=== PATIENT | female | born 1970 | race Caucasian/White ===

== ENCOUNTER → 2017-09-02 | Outpatient (CLI) | payer BC, OTHER ==
[~2017-09-02] VITALS: Ht 167.6 cm; Wt 79.4 kg
[~2017-09-02] MED LIST: CELEBREX200 MG PO; DICYCLOMINE HCL10 MG PO; FLEXERIL10 MG PO; Flexeril PO; Flintstones PO; HYDROCHLOROTHIA25 MG PO; KLONOPIN0.5 M1 PO; KlonoPIN PO; LEVOTHYROXINE88 MCG PO; Levothroid,Synthroid PO; MULTIPLE VITAM1 EAC4 PO; Metamucil Packet PO; OMEPRAZOLE40 M1 PO; PANTOPRAZOLE SO40 MG PO; PERCOCET 5/31 TABLET PO; PROTONIX40 MG PO; Percocet 10/325,Endo PO; Proventil,Ventolin H IH; SUCRALFATE1 GM PO; SYNTHROID88 MCG PO; VENTOLIN HFA18 GM IH; Vicodin,Norco 5/325 PO; ZESTORETIC,P1 TABLE3 PO; Zofran SL
== END | disposition home or self-care (01) ==
LOC: AMB 10:09
PROC: 0DJ08ZZ Inspection of Upper Intestinal Tract, Via Natural or Artificial Opening Endoscopic (ICD-10-PCS; principal; 2017-09-02)
DX: K31.89 Other diseases of stomach and duodenum (principal); Z98.84 Bariatric surgery status; K21.9 Gastro-esophageal reflux disease without esophagitis; M06.9 Rheumatoid arthritis, unspecified; F41.9 Anxiety disorder, unspecified; F32.9 Major depressive disorder, single episode, unspecified; E03.9 Hypothyroidism, unspecified; R53.82 Chronic fatigue, unspecified; Z86.19 Personal history of other infectious and parasitic diseases; Z88.8 Allergy status to other drugs, medicaments and biological substances; Z90.49 Acquired absence of other specified parts of digestive tract
CPT/HCPCS: J2405

== ENCOUNTER 2017-10-30 22:04 | Inpatient (IN) | payer BC, OTHER ==
[~2017-10-30] VITALS: Ht 167.6 cm; Wt 81.6 kg
[2017-10-31 08:12] VITALS: BP 104/69
[2017-10-31 15:03] VITALS: BP 123/78
[2017-10-31 19:31] VITALS: BP 127/75
[2017-11-01 00:17] VITALS: BP 128/52
[2017-11-01 03:48] VITALS: BP 114/60
[2017-11-01 06:36] LABS: HEMATOCRIT 33.2 % (36.0-46.0); HEMOGLOBIN 10.4 G/DL (11.9-15.5); MCH 25.7 PG (29.0-34.0); MCHC 31.3 G/DL (30.0-36.0); PLATELET COUNT 225 K/uL (156-360); RBC DIS.WIDTH-CV 15.9 % (11.8-14.6); RBC DIS.WIDTH-SD 47.6 % (39-53); RED BLOOD COUNT 4.05 M/uL (3.80-5.20); WHITE BLOOD COUNT 9.7 K/uL (4.1-10.2)
[2017-11-01 07:08] LABS: CHLORIDE 103 MEQ/L (99-109); CREATININE 0.5 MG/DL (0.6-1.3); GFR ESTIMATE (CALCULATED) > 59 mL/min/; GLUCOSE 116 mg/dL (70-99); POTASSIUM 3.9 MEQ/L (3.7-5.4); SODIUM 140 MEQ/L (136-147); UREA NITROGEN (BUN) 8 mg/dL (9-23)
[2017-11-01 08:30] VITALS: BP 105/61
[2017-11-01 11:26] VITALS: BP 107/65
[2017-11-01 16:34] VITALS: BP 104/66
[2017-11-01 19:31] VITALS: BP 124/76
[2017-11-02 01:06] VITALS: BP 137/76
[2017-11-02 05:18] VITALS: BP 135/75
[2017-11-02 06:37] LABS: HEMATOCRIT 31.6 % (36.0-46.0); HEMOGLOBIN 10.1 G/DL (11.9-15.5); MCH 25.9 PG (29.0-34.0); PLATELET COUNT 189 K/uL (156-360); RBC DIS.WIDTH-CV 16.1 % (11.8-14.6); RBC DIS.WIDTH-SD 47.6 % (39-53); WHITE BLOOD COUNT 6.4 K/uL (4.1-10.2)
[2017-11-02 06:58] LABS: CHLORIDE 104 MEQ/L (99-109); CREATININE 0.5 MG/DL (0.6-1.3); GFR ESTIMATE (CALCULATED) > 59 mL/min/; GLUCOSE 92 mg/dL (70-99); POTASSIUM 4.1 MEQ/L (3.7-5.4); SODIUM 140 MEQ/L (136-147); UREA NITROGEN (BUN) 7 mg/dL (9-23)
[2017-11-02 07:05] VITALS: BP 123/87
[2017-11-02] MEDS ORDERED: PERCOCET 5/31 TABLET PO (10:50)
[2017-11-02] MEDS ORDERED: HYDROMORPHONE HC4 MG PO (10:50)
[2017-11-02] MEDS ORDERED: ZOFRAN4 MG PO (10:50)
[2017-11-02] MEDS ORDERED: COLACE100 MG PO (10:50)
== END 2017-11-02 12:20 | disposition home or self-care (01) | DRG 327 ==
LOC: ENRESERV 22:04 → 2EASTP 10-31 07:26 → 2SOUTH 10-31 07:26 → ENRESERV 10-31 11:28 → 2SOUTH 10-31 11:38 → 2EASTP 10-31 15:07 → 2SOUTH 10-31 15:22 → 2EASTP 11-02 12:20
PROVIDERS: Surgery
DX: K28.7 Chronic gastrojejunal ulcer without hemorrhage or perforation (principal); C85.94 Non-Hodgkin lymphoma, unspecified, lymph nodes of axilla and upper limb; K42.9 Umbilical hernia without obstruction or gangrene; M79.7 Fibromyalgia; R53.82 Chronic fatigue, unspecified; B00.9 Herpesviral infection, unspecified; F41.0 Panic disorder [episodic paroxysmal anxiety]; E66.9 Obesity, unspecified; E16.2 Hypoglycemia, unspecified; K21.9 Gastro-esophageal reflux disease without esophagitis; K59.00 Constipation, unspecified; E28.2 Polycystic ovarian syndrome; E78.01 Familial hypercholesterolemia; F32.9 Major depressive disorder, single episode, unspecified; F51.11 Primary hypersomnia; Z68.29 Body mass index [BMI] 29.0-29.9, adult; M47.816 Spondylosis without myelopathy or radiculopathy, lumbar region; M06.9 Rheumatoid arthritis, unspecified; G47.30 Sleep apnea, unspecified; E03.9 Hypothyroidism, unspecified; E04.2 Nontoxic multinodular goiter; I10 Essential (primary) hypertension; J45.20 Mild intermittent asthma, uncomplicated; K66.0 Peritoneal adhesions (postprocedural) (postinfection); G47.00 Insomnia, unspecified
CPT/HCPCS: 80048; 82150 91; 85027; 86850; 86900; 86901; 88307; 94799; C9113; J0690; J1170; J1644; J2250; J2405; J2550; J2765; J3010; J3480; Q0169; S0074